=== PATIENT | female | born 1995 | race Caucasian/White ===

== ENCOUNTER → 2016-07-16 | Outpatient (CLI) | payer OTHER ==
[~2016-07-16] MED LIST: BCPILLS PO; CYCL10TA6 PO; TRAM-10 PO
--- NOTE | 2016-07-16 11:40 | DIAGNOSTIC IMAGING REPORT ---
LUMBAR SPINE MIN 4 VIEWS CLINICAL HISTORY: LOWER BACK PAIN COMPARISON STUDY: 01/22/2015 FINDINGS: There are 5 lumbar type vertebral bodies present. No fractures subluxations or destructive lesions are evident. IMPRESSION: No fractures, subluxations, or destructive lesions are visualized Electronically signed by: Jarod Fuller M.D. 07/16/2016 11:39 AM Dictated Date/Time: 07/16/2016 11:38 AM
== END | disposition home or self-care (01) ==
LOC: C.RDSM 15:45
PROVIDERS: ATTEND Physical Medicine & Rehabilitation Sports Medicine
DX: R52 Pain, unspecified (principal)

== ENCOUNTER → 2016-10-01 | Day surgery (SDC) | payer OTHER ==
[2016-09-07 15:28] VITALS: Ht 167.6 cm; Wt 65.9 kg
[~2016-10-01] VITALS: Ht 167.6 cm; Wt 65.9 kg
[~2016-10-01] MED LIST changes: +BUPIVACAINE 0.25% 2.5MG/ML PF 10 ML VIAL INFIL ONE; +IOPAMIDOL INJ 61% 15 ML VIAL ONE; +LIDOCAINE HCL 1% MPF 5 ML VIAL ONE; +METHYLPREDNISOLONE ACETATE 80 MG/ML VIAL ONE; +SODIUM CHLORIDE 0.9% INJ 10 ML VIAL ONE
--- NOTE | 2016-10-01 12:47 | History & Physical Bridge - [place] ---
H&P Re-Evaluation Bridge Note: I have examined the patient, reviewed the History & Physical and in the interval since the performance of the History & Physical I have noted the following changes of clinical significance: No changes noted
[2016-10-01 13:07] VITALS: TEMP 37
--- NOTE | 2016-10-01 13:17 | Discharge Instructions ---
Discharge Instructions Date of Service October 01, 2016. Visit Reason for Visit: Low Back Pain Discharge Discharge Diagnosis / Problem: low back pain Discharge Goals Goal(s): Decrease discomfort, Improve function Medications Stopped Medications Name(s): no blood thinners Activity Recommendations Activity Limitations: resume your previous activity Anesthesia . Post Anesthesia Instructions: If you have had General Anesthesia or IV Sedation: * Do not drive today. * Resume driving when surgeon permits. * Do not make important decisions or sign legal documents today. * Call surgeon for: 1. Temperature elevations greater than 101 degrees F. 2. Uncontrollable pain. 3. Excessive bleeding. 4. Persistent nausea and vomiting. 5. Medication intolerance (nausea, vomiting or rash). * For nausea and vomiting use only clear liquids such as: tea, soda, bouillon until nausea subsides, then gradually increase diet as tolerated. * If you have any concerns or questions, call your surgeon's office. If physician is unavailable and it is an emergency, call 911 or go to the nearest emergency room. . Diet Recommendations Recommended Home Diet: resume previous diet Procedures Procedures Performed: Right L5-S1 Facet Joint Injection Pending Studies Studies pending at discharge: no Medical Emergencies . Who to Call and When: Medical Emergencies: If at any time you feel your situation is an emergency, please call 911 immediately. . Non-Emergent Contact Non-Emergency issues call your: Specialist . . "Provider Documentation" section prepared by Parish Partida. .
[2016-10-01 13:20] VITALS: BP 117/82; PULSE 76; O2SAT 97
--- NOTE | 2016-10-01 16:12 | OPERATIVE REPORT ---
DATE OF OPERATION: 10/01/2016 PREOPERATIVE DIAGNOSES: Right L5-S1 facet joint arthritic pain and chronic low back pain. POSTOPERATIVE DIAGNOSES: Same. PROCEDURE: Right L5-S1 facet joint injection. INDICATIONS: The patient is a 21-year-old white female who presents with a 4-year history of low back pain related to disc herniations. She reports this pain is different than the herniations, now radiating down the leg but localized more to the lower back and buttocks area. Imaging studies confirmed an L5-S1 facet problem which is tender for her, presents today as she has not gotten improvements with conservative treatments. PHYSICAL EXAMINATION: Pleasant female seated comfortably, in no apparent distress. She has point tenderness to palpation of the right L5-S1 facet area, worse with extension and rotation, problems with flexion. She has normal lower extremity strength. Negative seated straight leg raises. CONSENT: Verbal and written consent was obtained from patient. Risks and benefits are reviewed. Risks include but are not limited to abscess and allergic reaction. She wishes to proceed. DESCRIPTION OF PROCEDURE: The patient was taken back to the special procedures room of [facility] where she was maintained in prone position. Backside was cleansed with Betadine x3 and a dry sterile dressing was applied. Fluoroscope was used to identify the L5-S1 junction. It was then moved in 25 degrees which then identified the facet joint. Overlying skin was anesthetized with 5 mL of lidocaine 1% with a 25-gauge 1.5-inch needle. A 25-guage 3.5-inch spinal needle was then directed into the joint. Isovue-300 contrast 0.25 mL demonstrated intraarticular uptake. She then underwent injection after negative aspiration of 40 mg of Depo-Medrol and 0.5 mL of bupivacaine 0.25% preservative free. Injection was well tolerated. DISPOSITION: 1. The patient is taken out into the discharge recovery area where she will be discharged home once discharge criteria have been met. 2. Follow up in the [facility] office in 2-4 weeks. I attest to the content of the Intraoperative Record and any orders documented therein. Any exceptio ns are noted below.
== END | disposition home or self-care (01) ==
LOC: X.SURG 12:00
PROVIDERS: ATTEND Physical Medicine & Rehabilitation
DX: M51.26 Other intervertebral disc displacement, lumbar region (principal)